=== PATIENT | male | born 2000 | race Two or more races ===

== ENCOUNTER 2018-08-30 02:40 | Emergency (ER) | payer MEDICAID ==
[~2018-08-30] VITALS: Ht 177.8 cm; Wt 66.7 kg
[2018-08-30 02:53] VITALS: BP 121/60
[2018-08-30] MEDS ORDERED: LIDOCAINE 1%HCL (LOCAL ANESTH) 10 ML MDV ONE ×2 (03:56→04:12)
[2018-08-30] MEDS ORDERED: IBUPROFEN 800 MG TAB PO ONE (04:30)
[2018-08-30] MEDS ORDERED: BACITRACIN TOP OINT 1 UD PKG TOP ONE (04:30)
[2018-08-30] MEDS ORDERED: LIDOCAINE 1% HCL (LOCAL ANESTH.) INJ 20ML MDV ID ONE (04:30)
== END 2018-08-30 04:45 | disposition home or self-care (01) ==
LOC: ER 02:43
DX: S61.011A Laceration without foreign body of right thumb without damage to nail, initial encounter (principal); W25.XXXA Contact with sharp glass, initial encounter; Y93.89 Activity, other specified; Y99.8 Other external cause status; Y92.89 Other specified places as the place of occurrence of the external cause
CPT/HCPCS: 12001; 99283; J2001

== ENCOUNTER 2018-10-20 00:22 | Emergency (ER) | payer MEDICAID, OTHER ==
[~2018-10-20] VITALS: Ht 172.7 cm; Wt 72.6 kg
[2018-10-20 00:39] VITALS: BP 126/73
[2018-10-20 01:05] LABS: Basophils # (auto) 0 uL; Basophils % (auto) 0.4 % (0.0-2.0); Eosinophils # (auto) 0.1 uL; Eosinophils % (auto) 0.6 % (0.0-7.0); Hematocrit 42.9 % (41.0-53.0); Hemoglobin 14.1 g/dL (13.5-17.5); Lymphocytes # (auto) 2.3 uL; Lymphocytes % (auto) 24.9 % (10.0-50.0); Mean Corpuscular Hgb Conc. 32.8 g/dL (32.0-36.0); Mean Corpuscular Volume 88.4 fL (80.0-100.0); Monocytes # (auto) 0.9 uL; Neutrophils # (auto) 5.8 uL; Neutrophils % (auto) 64.1 % (37.0-80.0); Nucleated Red Blood Cells % 0.1 %; Platelet Count (auto) 256 10^3/uL (140-450); Red Blood Cells 4.85 10^6/uL (4.5-5.90); Red Cell Distribution Width 13.4 % (11.8-14.3); White Blood Cell 9.1 10^3/uL (4.4-10.8)
[2018-10-20 01:20] LABS: Salicylate < 1.7 mg/dL (2.8-20.0)
[2018-10-20 01:21] LABS: Anion Gap 8 (5-15); Blood Alcohol < 3.0 mg/dL (0-5); Calcium 8.3 mg/dL (8.5-10.1); Carbon Dioxide 24 mmol/L (21-32); Chloride 106 mmol/L (98-107); Glucose 112 mg/dL (74-106); Magnesium 2.2 mg/dL (1.6-2.6); Potassium 3.7 mmol/L (3.5-5.1); Sodium 138 mmol/L (136-145)
[2018-10-20 01:26] LABS: Acetaminophen 13.4 ug/mL (10-30)
[2018-10-20 01:28] LABS: Alanine Aminotransferase 23 U/L (16-61); Alkaline Phosphatase 49 U/L (45-117); Aspartate Aminotransferase 19 U/L (15-37); BUN/Creatinine Ratio 12.2; Bilirubin, Total 0.3 mg/dL (0.2-1.0); Blood Urea Nitrogen 12 mg/dL (7-18); GFR African American 125 mL/min; GFR Non-African American 104 mL/min; Total Protein 7.2 g/dL (6.4-8.2)
[2018-10-20 03:18] LABS: Alcohol, Urine < 3.0 mg/dL (0-5); Amphetamine Screen, Urine NEGATIVE (NEGATIVE); Barbiturate Scree,Urine NEGATIVE (NEGATIVE); Benzodiazephine Screen, Urine NEGATIVE (NEGATIVE); Cannabinoid Screen, Urine POSITIVE (NEGATIVE); Cocaine Screen, Urine NEGATIVE (NEGATIVE); Opiate Scree,Urine NEGATIVE (NEGATIVE); Phencyclidine Screen, Urine NEGATIVE (NEGATIVE)
[2018-10-20 03:19] LABS: Urine Bacteria FEW /hpf (None Seen); Urine Blood Negative /uL (Negative); Urine Mucus FEW (None Seen); Urine Specific Gravity 1.009 (1.001-1.035); Urine WBC <1 /hpf (0 - 3)
== END 2018-10-20 07:11 | disposition left against medical advice (07) ==
LOC: EDUNIT# 00:22 → ER 00:22 → EDBD 00:22 → ER 07:11
DX: T39.391A Poisoning by other nonsteroidal anti-inflammatory drugs [NSAID], accidental (unintentional), initial encounter (principal); T39.311A Poisoning by propionic acid derivatives, accidental (unintentional), initial encounter; Z53.21 Procedure and treatment not carried out due to patient leaving prior to being seen by health care provider; Y92.89 Other specified places as the place of occurrence of the external cause
CPT/HCPCS: 36415; 80053; 80307; 80320; 80329; 81001; 83735; 85025

== ENCOUNTER 2018-11-24 13:53 | Emergency (ER) | payer MEDICAID, OTHER ==
[~2018-11-24] VITALS: Ht 175.3 cm; Wt 68.0 kg
[2018-11-24 14:39] VITALS: BP 120/82
[2018-11-24 14:45] LABS: Urine Bacteria NONE SEEN /hpf (None Seen); Urine Blood Negative /uL (Negative); Urine Specific Gravity 1.024 (1.001-1.035); Urine WBC 4 /hpf (0 - 3)
[2018-11-24] MEDS ORDERED: cefTRIAXone SOD 500 MG VL IM ONE (15:15)
[2018-11-24] MEDS ORDERED: AZITHROMYCIN 250 MG TAB PO ONE (15:15)
== END 2018-11-24 15:38 | disposition home or self-care (01) ==
LOC: ER 13:55
DX: Z20.2 Contact with and (suspected) exposure to infections with a predominantly sexual mode of transmission (principal)
CPT/HCPCS: 81001; 96372; 99283; J0696

== ENCOUNTER 2018-12-16 12:31 | Emergency (ER) | payer MEDICAID ==
[~2018-12-16] VITALS: Ht 175.3 cm; Wt 68.0 kg
[2018-12-16 12:41] VITALS: BP 129/72
== END 2018-12-16 15:10 | disposition home or self-care (01) ==
LOC: ER 12:31
DX: G43.909 Migraine, unspecified, not intractable, without status migrainosus (principal); J06.9 Acute upper respiratory infection, unspecified; R42 Dizziness and giddiness; F41.9 Anxiety disorder, unspecified; F12.10 Cannabis abuse, uncomplicated
CPT/HCPCS: 70450

== ENCOUNTER 2022-10-31 17:05 | Emergency (ER) | payer MEDICAID, OTHER ==
[~2022-10-31] VITALS: Ht 175.3 cm; Wt 63.2 kg
[2022-10-31 18:16] LABS: Basophils # (auto) 0.1 10 ^3/uL (0-0.2); Basophils % (auto) 0.7 % (0.0-2.0); Eosinophils # (auto) 0.1 10 ^3/uL (0-0.8); Eosinophils % (auto) 1.1 % (0.0-7.0); Hematocrit 46.4 % (41.0-53.0); Hemoglobin 15.4 g/dL (13.5-17.5); Lymphocytes # (auto) 3.3 10 ^3/uL (0.4-5.4); Lymphocytes % (auto) 34.2 % (10.0-50.0); Mean Corpuscular Hgb Conc. 33.1 g/dL (32.0-36.0); Mean Corpuscular Volume 93.5 fL (80.0-100.0); Monocytes # (auto) 0.8 10 ^3/uL (0-1.3); Monocytes % (auto) 7.8 % (0.0-12.0); Neutrophils # (auto) 5.5 10 ^3/uL (1.6-8.6); Neutrophils % (auto) 56.2 % (37.0-80.0); Nucleated Red Blood Cells % 0.1 %; Red Blood Cells 4.96 10^6/uL (4.5-5.90); Red Cell Distribution Width 13.6 % (11.8-14.3); White Blood Cell 9.8 10^3/uL (4.4-10.8)
[2022-10-31 18:36] LABS: Albumin 4.1 g/dL (3.4-5.0); Calcium 8.9 mg/dL (8.5-10.1); Potassium 4.5 mmol/L (3.5-5.1)
[2022-10-31 18:41] LABS: BUN/Creatinine Ratio 12.4; Bilirubin, Total 0.4 mg/dL (0.2-1.0)
[2022-10-31 18:57] VITALS: BP 102/50
== END 2022-10-31 18:59 | disposition home or self-care (01) ==
LOC: ER 17:05
DX: R07.89 Other chest pain (principal); Z87.19 Personal history of other diseases of the digestive system; Z86.2 Personal history of diseases of the blood and blood-forming organs and certain disorders involving the immune mechanism
CPT/HCPCS: 36415; 71046; 80053; 83735; 84484; 85025; 93005

== ENCOUNTER 2024-12-09 21:36 | Emergency (ER) | payer OTHER ==
[~2024-12-09] VITALS: Ht 177.8 cm; Wt 66.7 kg
--- NOTE | 2024-12-09 22:14 | DVH ---
CLINICAL INDICATION: injury TECHNIQUE: 3 radiographs of the right hand were obtained. Comparison: None FINDINGS/IMPRESSION: No osseous or joint abnormality identified with no evidence of fracture or dislocation.
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
[2024-12-09] MEDS ORDERED: IBU600T PO (23:15)
[2024-12-10 00:10] VITALS: BP 120/74; PULSE 72; RESP 18; TEMP 98.8; O2SAT 97
[2024-12-10] MEDS: ACETAMINOPHEN 325 MG TAB PO ONE (00:14)
== END 2024-12-10 00:37 | disposition home or self-care (01) ==
LOC: ER 21:36
DX: S63.681A Other sprain of right thumb, initial encounter (principal); Z86.2 Personal history of diseases of the blood and blood-forming organs and certain disorders involving the immune mechanism; W05.2XXA Fall from non-moving motorized mobility scooter, initial encounter; Y93.I9 Activity, other involving external motion; Y92.89 Other specified places as the place of occurrence of the external cause; Y99.8 Other external cause status
CPT/HCPCS: 29125; 73130

== ENCOUNTER 2025-01-18 22:05 | Emergency (ER) | payer OTHER ==
[~2025-01-18] VITALS: Ht 177.8 cm; Wt 67.6 kg
[~2025-01-18 22:05] MED LIST: IBU600T PO
[2025-01-18 22:18] VITALS: TEMP 97.9
--- NOTE | 2025-01-18 22:54 | ED.PDOC ---
History of Present Illness HPI Comments 24 y/o M presents with c/o right-jaw pain for 1 month, today. Patient reports ongoing pain following unprovoked, initial onset. He states on pain pulling to his left-jaw whenever sleeping. Denies any fever or tooth pain. Admits to recent life stressors with the impending arrival of his in 1 month. Chief Complaint: Jaw Pain Time Seen by MD: 22:40 Primary Care Provider: Dr. Raymundo Reviewed Notes: Nurses Notes, Medications, Allergies Allergies: Coded Allergies: NO KNOWN ALLERGIES (Unverified , 08/30/18) Home Meds Active Scripts Ibuprofen Micronized (MOTRIN TABLET) 600 Mg Tb, 600 MG PO TID PRN, #40 TAB *Black box warning-NSAIDS can increase risk of [place] & hypertension, GI irritation, ulceration, bleed, perferation. Do not use post cardiac surgery. Use short duration/lowest effective dose. Prov:BRANDY PHIPPS MD 12/09/24 Information Source: Patient Mode of Arrival: Ambulatory Severity: Moderate Timing: Months Duration: Since onset Prehospital treatment: None Past Medical History PAST MEDICAL HISTORY: Anemia Surgical History: Denies all surgeries Family History Family History: Family hx of heart ean Family History (Other): MIGRAINE HEADACHE IN MOM Social History Smoker: Other Alcohol: Denies ETOH Use Drugs: Marijuana Lives In: Home All Other Systems: Reviewed and Negative (Comprehensive systems review obtained and negative except for what is stated in the HPI.) Physical Exam General Appearance: No Apparent Distress, Normal HEENT: Pharynx Normal, TMs Normal, Other (tenderness to right TMJ, no TMJ click, otherwise normal HEENT exam) Neck: Full Range of Motion, Non-Tender, Normal, Normal Inspection Respiratory: Chest Non-Tender, Lungs Clear, No Accessory Muscle Use, No Respiratory Distress, Normal Breath Sounds Cardiovascular: No Edema, No JVD, No Murmur, No Gallop, Normal Peripheral Pulses, Regular Rate/Rhythm Breast Exam: Deferred Gastrointestinal: No Organomegaly, Non Tender, No Pulsatile Mass, Normal Bowel Sounds, Soft Genitalia: Deferred Pelvic: Deferred Rectal: Deferred Extremities: No calf tenderness, Normal capillary refill, Normal inspection, Normal range of motion, Non-tender, No pedal edema Musculoskeletal : Apperance: Normal Neurologic: Alert, diesel technician II-XII nml as Tested, No Motor Deficits, Normal Affect, Normal Mood, No Sensory Deficits Cerebellar Function: Normal Reflexes: Normal Skin: Dry, Normal Color, Warm Lymphatic: No Adenopathy Was a procedure done? Was a procedure done?: No Differential Dx Considerations may include: sinusitis, neuralgia, arthritis, among others X-Ray, Labs, Meds, VS Vital Signs Date Time Temp Pulse Resp B/P (MAP) Pulse Ox O2 Delivery O2 Flow Rate FiO2 01/18/25 22:18 97.9 51 14 114/56 (75) 99 97.9 X-Ray, Labs, Meds, VS Comment Imaging: X-rays and CT scans were reviewed and interpreted by this provider, imaging shows no fractures and no pathological disease. Pending radiology review. Laboratory: Labs reviewed and interpreted by this provider. No significant abnormalities noted. Patient has prior medical visits reviewed. Med reconciliation performed Vital signs reviewed Time of 1ST Reevaluation: 23:10 Reevaluation 1ST: Unchanged Patient Education/Counseling: Diagnosis, Treatment, Need For Follow Up (Follow up in the emergency department in the next 24-48 hours if symptoms worsen. It was advised to follow up with your primary care doctor in the next 3-4 days for further evaluation.) Family Education/Counseling: No Family Present Departure 1 Departure Time of Disposition: 23:39 Impression: Primary Impression: TMJ (sprain of temporomandibular joint) Qualified Codes: S03.40XA - Sprain of jaw, unspecified side, initial encounter Disposition: HOME / SELF CARE / HOMELESS Condition: Fair e-Prescriptions Ibuprofen (Ibuprofen) 600 Mg Tab 1 TAB PO TID, #30 TAB Prov: DAVID CASTLE 01/18/25 Methylprednisolone (Medrol Dosepak) 4 Mg Shawn 4 MG PO UD, #21 TAB UAD Prov: DAVID CASTLE 01/18/25 Discharged With: Self Critical Care Note Critical Care Time?: No Stability Stability form required: No Heart Score Heart Score: Heart Score Response (Comments) Value History N/A 0 EKG N/A 0 Age N/A 0 Risk Factors N/A 0 Troponin N/A 0 Total 0 I personally scribed for DAVID CASTLE ([email or web address]) on 01/18/25 at 22:54. Electronically submitted by Ben Nicholas [email or web address]). DAVID CASTLE Jan 18, 2025 22:54
[2025-01-18] MEDS ORDERED: METH4PAK PO (23:40)
[2025-01-18] MEDS ORDERED: IBUP-1454 PO (23:40)
[2025-01-19] MEDS: KETOROLAC TROMETH 30 MG/ML 1ML VIAL IM ONE (00:14)
[2025-01-19] MEDS: methylPREDNISolone SOD SUCC 125 MG/2 ML VL IM ONE (00:15)
[2025-01-19 00:45] VITALS: BP 109/54; PULSE 56; RESP 16; O2SAT 99
== END 2025-01-19 01:10 | disposition home or self-care (01) ==
LOC: ER 22:05
DX: M26.601 Right temporomandibular joint disorder, unspecified (principal); F17.200 Nicotine dependence, unspecified, uncomplicated; F12.90 Cannabis use, unspecified, uncomplicated
CPT/HCPCS: 96372; 99284; J1885; J2919

== ENCOUNTER 2025-02-03 14:03 | Emergency (ER) | payer OTHER ==
[~2025-02-03] VITALS: Ht 180.3 cm; Wt 64.6 kg
[~2025-02-03 14:03] MED LIST changes: +IBUP-1454 PO; +METH4PAK PO
--- NOTE | 2025-02-03 14:18 | ECG ---
[facility] Test Date: 2025-02-03 Test Time: 14:12:23 Pat Name: URBANO GIRON Department: ER Room: Gender: M Psychology Teacher: CARTER : 2000 Requested By: NATTY HURLEY Order Number: [id number] Reading MD: Measurements Intervals [place] Rate: 77 P: 77 OR: 158 QRS: 6 QRSD: 86 T: 37 QT: 350 QTc: 397 Interpretive Statements Sinus arrhythmia ST elev, probable normal early repol pattern Baseline wander in lead(s) V6 Please click the below link to view image of tracing.
[2025-02-03 14:33] LABS: Chloride 106 mmol/L (98-107); Potassium 4.6 mmol/L (3.5-5.1); Sodium 142 mmol/L (136-145)
[2025-02-03 14:34] LABS: Anion Gap 8 (5-15); Calcium 9.6 mg/dL (8.7-10.4); Carbon Dioxide 28 mmol/L (20-31)
--- NOTE | 2025-02-03 14:36 | ED.PDOC ---
HPI Comments 24 y/o M, with PMHx of anemia and IBS presents to the ED for CC of chest pain. Patient states, that he has been experiencing substernal chest pain [id number]. Patient relays pain to be sore in nature. Patient denies palpitations, shortness of breath, numbness, weakness, or headache. No other associated symptoms, modifiers, recent injuries or sick contacts present at this time. Chief Complaint: Chest Pain Time Seen by MD: 14:30 Primary Care Provider: CELE Reviewed Notes: Nurses Notes, Medications, Allergies Allergies: Coded Allergies: NO KNOWN ALLERGIES (Unverified , 08/30/18) Home Meds Active Scripts Ibuprofen (Ibuprofen) 600 Mg Tab, 1 TAB PO TID, #30 TAB Prov:DAVID CASTLEP 01/18/25 Methylprednisolone (Medrol Dosepak) 4 Mg Shawn, 4 MG PO UD, #21 TAB UAD Prov:DAVID CASTLE RETAIL MANAGER 01/18/25 Ibuprofen Micronized (MOTRIN TABLET) 600 Mg Tb, 600 MG PO TID PRN, #40 TAB *Black box warning-NSAIDS can increase risk of [place] & hypertension, GI irritation, ulceration, bleed, perferation. Do not use post cardiac surgery. Use short duration/lowest effective dose. Prov:BRANDY PHIPPS MD 12/09/24 Information Source: Patient Mode of Arrival: Ambulatory Severity: Moderate Timing: Weeks Duration: Since onset Prehospital treatment: None Location: Substernal Radiation: No Radiation Quality: Other (soreness) Onset: At Rest Cardiac Risk Factors: None PE Risk Factors: None History of: None Modifying Factors: Nothing Associated Signs and Symptoms: None Past Medical History PAST MEDICAL HISTORY: Anemia Past Medical History (Other): IBS Surgical History: Denies all surgeries Family History Family History: Family hx of heart ean Family History (Other): MIGRAINE HEADACHE IN MOM Social History Smoker: Cigarettes Alcohol: Denies ETOH Use Drugs: Marijuana Lives In: Home Constitutional: denies: chills, diaphoresis, fatigue, fever, malaise, sweats, weakness, others EENTM: denies: blurred vision, double vision, ear bleeding, ear discharge, ear drainage, ear pain, ear ringing, eye pain, eye redness, hearing loss, mouth pain, mouth swelling, nasal discharge, nose bleeding, nose congestion, nose pain, photophobia, tearing, throat pain, throat swelling, voice changes, others Respiratory: denies: cough, hemoptysis, orthopnea, SOB at rest, shortness of breath, SOB with excertion, stridor, wheezing, others Cardiovascular: reports: chest pain; denies: dizzy spells, diaphoresis, Dyspnea on exertion, edema, irregular heart beat, left arm pain, lightheadedness, palpitations, PND, syncope, others Gastrointestinal: denies: abdomen distended, abdominal pain, blood streaked bowels, constipated, diarrhea, dysphagia, difficulty swallowing, hematemesis, melena, nausea, poor appetite, poor fluid intake, rectal bleeding, rectal pain, vomiting, others Genitourinary: denies: burning, dysuria, flank pain, frequency, hematuria, incontinence, penile discharge, penile sore, pain, testicle pain, testicle swelling, urgency, others Neurological: denies: dizziness, fainting, headache, left sided numbness, left sided weakness, numbness, paresthesia, pre-existing deficit, right sided numbness, right sided weakness, seizure, speech problems, tingling, tremors, weakness, others Musculoskeletal: denies: back pain, gout, joint pain, joint swelling, muscle pa in, muscle stiffness, neck pain, others Integumetry: denies: bruises, change in color, change in hair/nails, dryness, laceration, lesions, lumps, rash, wounds, others Allergic/Immunocompromised: denies: Difficulty Healing, Frequent Infections, Hives, Itching, others Hematologic/Lymphatic: denies: anemia, blood clots, easy bleeding, easy bruising, swollen glands, others Endocrine: denies: excessive hunger, excessive sweating, excessive thirst, excessive urination, flushing, intolerance to cold, intolerance to heat, unexplained weight gain, unexplained weight loss, others Psychiatric: denies: anxiety, bipolar disorder, depression, hopeless, panic disorder, schizophrenia, sleepless, suicidal, others All Other Systems: Reviewed and Negative Physical Exam General Appearance: Moderate Distress HEENT: Normal ENT Inspection, Pharynx Normal, TMs Normal Neck: Full Range of Motion, Non-Tender, Normal, Normal Inspection Respiratory: Chest Non-Tender, Lungs Clear, No Accessory Muscle Use, No Respiratory Distress, Normal Breath Sounds Cardiovascular: No Edema, No JVD, No Murmur, No Gallop, Normal Peripheral Pulses, Regular Rate/Rhythm Breast Exam: Deferred Gastrointestinal: No Organomegaly, Non Tender, No Pulsatile Mass, Normal Bowel Sounds, Soft Genitalia: Deferred Pelvic: Deferred Rectal: Deferred Extremities: No calf tenderness, Normal capillary refill, Normal inspection, Normal range of motion, Non-tender, No pedal edema Musculoskeletal : Apperance: Normal Neurologic: Alert, steel cutter II-XII nml as Tested, No Motor Deficits, Normal Affect, Normal Mood, No Sensory Deficits Cerebellar Function: Normal Reflexes: Normal Skin: Dry, Normal Color, Warm Peripheral Pulses: 3+ Radial (R), 3+ Radial (L) Lymphatic: No Adenopathy EKG EKG : Pulse Rate (adult): 77 [place]: Normal Cardiac Rhythm: NSR Block: None Hypertrophy: None ST: Normal Was a procedure done? Was a procedure done?: No CP Differential Dx Differential Diagnosis: A-fib, A-Flutter, Angina, Anxiety / Panic Attack, Atrial Dysrhythmia, Electrolyte Disorder Differential Diagnosis: Chest Wall Pain, Costochondritis X-Ray, Labs, Meds, VS Vital Signs Date Time Temp Pulse Resp B/P (MAP) Pulse Ox O2 Delivery O2 Flow Rate FiO2 02/03/25 14:36 77 02/03/25 14:18 98.2 67 17 109/64 (79) 99 98.2 02/03/25 14:12 77 Lab Test 02/03/25 14:15 Range/Units Sodium Level 142 136-145 mmol/L Potassium Level 4.6 3.5-5.1 mmol/L Chloride Level 106 98-107 mmol/L Carbon Dioxide Level 28 20-31 mmol/L Anion Gap 8 5-15 Blood Urea Nitrogen 10 9-23 mg/dL Creatinine 0.97 0.700-1.30 mg/dL Glomerular Filtration Rate Calc 110 >90 mL/min BUN/Creatinine Ratio 10.3 10.0-20.0 Serum Glucose 87 74-106 mg/dL Calcium Level 9.6 8.7-10.4 mg/dL Troponin I High Sensitivity 5 </=54 ng/L Patient alert. Complaining of chest pain. Vitals stable. No sign of distress. Chemistries within normal limits. EKG reviewed does not show any acute changes. Cardiac marker within normal limits. Physical examination pristine. No calf tenderness pain No swelling of the extremities. Possible anxiety. Chest x-ray reviewed does not show any acute changes. Reviewed his history. Explained to the patient. Was told to follow up with his primary care physician. Was told to come back if there is any problem. Time of 1ST Reevaluation: 15:00 Reevaluation 1ST: Improved Patient Education/Counseling: Diagnosis, Treatment Family Education/Counseling: No Family Present Departure 1 Departure Time of Disposition: 14:52 Impression: Primary Impression: Musculoskeletal chest pain Additional Impression: Muscle strain Disposition: HOME / SELF CARE / HOMELESS Condition: Good Discharged With: Self Critical Care Note Critical Care Time?: No Stability Stability form required: No Heart Score Heart Score: Heart Score Response (Comments) Value History Slightly Suspicious 0 EKG Normal 0 Age <45 0 Risk Factors No known risk factors 0 Troponin Normal limit 0 Total 0 I personally scribed for NATTY HURLEY MD ([email or web address]) on 02/03/25 at 14:35. Electronically submitted by Selam Borrero ([email or web address]). I personally scribed for NATTY HURLEY MD ([email or web address]) on 02/03/25 at 14:36. Electronically submitted by Selam Borrero ([email or web address]). NATTY HURLEY MD Feb 03, 2025 14:35
[2025-02-03 14:39] LABS: BUN/Creatinine Ratio 10.3 (10.0-20.0); Blood Urea Nitrogen 10 mg/dL (9-23); Glucose 87 mg/dL (74-106)
--- NOTE | 2025-02-03 15:08 | DVH ---
CHEST RADIOGRAPH Indication: sob Technique: Single frontal view of the chest was obtained Comparison: None FINDINGS: The cardiac silhouette is unremarkable. The lungs demonstrate no pulmonary airspace consolidation. Th e pulmonary vasculature is unremarkable. There is no pleural effusion.. There is no pneumothorax. IMPRESSION: 1. No pulmonary airspace consolidation.<< >>
[2025-02-03 16:03] VITALS: BP 98/55; PULSE 76; RESP 16; TEMP 97.8; O2SAT 99
[2025-02-03] MEDS: KETOROLAC TROMETH 60MG/2ML VIAL IM ONE (16:13)
== END 2025-02-03 16:20 | disposition home or self-care (01) ==
LOC: ER 14:03
DX: T14.8XXA Other injury of unspecified body region, initial encounter (principal); R07.89 Other chest pain; F17.210 Nicotine dependence, cigarettes, uncomplicated; F12.90 Cannabis use, unspecified, uncomplicated; Z79.1 Long term (current) use of non-steroidal anti-inflammatories (NSAID); X58.XXXA Exposure to other specified factors, initial encounter; Y93.89 Activity, other specified; Y92.89 Other specified places as the place of occurrence of the external cause; Y99.8 Other external cause status
CPT/HCPCS: 36415; 71045; 80048; 84484; 93005; 96372; 99285; J1885